=== PATIENT | male | born 1990 | race Caucasian/White ===

== ENCOUNTER 2020-03-21 12:55 | Outpatient (CLI) | payer BC, SELFPAY ==
[2020-03-21 13:38] LABS: Basophils Percent Auto 0.5 % (0.2-1.2); Eosinophils Absolute Auto 0.1 K/mm3 (0-0.3); Eosinophils Percent Auto 1.1 % (0-4.4); Hematocrit 42.5 % (42.0-52.0); Hemoglobin 14.6 g/dL (14.0-18.0); Immature Granulocyte Absolute 0.01 K/mm3 (0.00-0.031); Immature Granulocyte Percent A 0.2 % (0-0.5); Lymphocytes Absolute Auto 2.06 K/mm3 (0.9-3.2); Lymphocytes Percent Auto 33.2 % (18.3-44.2); Mean Corpuscular HGB Conc 34.4 g/dl (32-36); Mean Corpuscular Hemoglobin 32.7 pg (26-34); Mean Corpuscular Volume 95.3 fl (80-100); Monocytes Absolute Auto 0.6 K/mm3 (0.1-0.6); Monocytes Percent Auto 9.5 % (2.6-8.5); Neutrophils Absolute Auto 3.4 K/mm3 (1.3-6.7); Neutrophils Percent Auto 55.5 % (45.5-73.1); Platelet Count Result 231 k/mm3 (150-375); Red Blood Count 4.46 M/mm3 (4.6-6.20); Red Cell Distribution Width 12.2 % (11.5-14.5); White Blood Count 6.2 K/mm3 (4.5-10.0)
[2020-03-21 13:55] LABS: Alanine Aminotransferase 21 U/L (4-50); Albumin Level 4.7 g/dL (3.5-5.1); Alkaline Phosphatase 72 U/L (38-126); Aspartate Amino Transferase 26 U/L (17-59); Bilirubin,Total 0.3 mg/dL (0.2-1.3); Blood Urea Nitrogen 10 mg/dL (9-20); Calcium 9.1 mg/dL (8.4-10.2); Carbon Dioxide 29 mmol/L (22-30); Chloride 101 mmol/L (98-107); Estimated Glomerular Filt Rate > 60; Glucose 82 mg/dL (75-110); Potassium 3.9 mmol/L (3.4-5.0); Sodium 136 mmol/L (137-145)
[2020-03-23 17:11] LABS: Lamotrigine Lamictal 7.4 mcg/mL (4.0-18.0)
[2020-03-24 11:20] LABS: Oxcarbazepine 14.8 mcg/mL (8.0-35.0)
== END 2020-03-21 12:56 | disposition home or self-care (01) ==
PROVIDERS: PCP Family Medicine
DX: G40.219 Localization-related (focal) (partial) symptomatic epilepsy and epileptic syndromes with complex partial seizures, intractable, without status epilepticus (principal)
CPT/HCPCS: 36415; 80053; 80175; 80183; 85025

== ENCOUNTER 2020-11-15 06:19 | Emergency (ER) | payer OTHER, SELFPAY ==
--- NOTE | ~2020-11-15 | CT_ITS ---
EXAMINATION: CT brain wo con DATE: 11/15/2020 08:41 INDICATION: Altered mental status. TECHNIQUE: Computed tomography (CT) of the head was performed without intravenous contrast. The mA wa s adjusted according to patient size. Iterative reconstruction technique was employed. The dose-lengt h product was 605.33 mGy-cm. COMPARISON: None FINDINGS: There is no intracranial hemorrhage, acute infarction, or abnormal intracranial mass lesion . The ventricles are normal in size. The orbits are normal. There is mucosal thickening in the parana amie sinuses. The mastoid air cells are normal. There are right frontal lateral scalp skin raysa. IMPRESSION: 1. Normal brain. Reviewed, dictated and finalized at location A. ER OUT IMPRESSION: 1. Normal brain.
[2020-11-15] MEDS: LORazepam INJ (*CRX) 2 MG/ML VIAL (06:30)
--- NOTE | 2020-11-15 06:30 | ECG_ITS ---
Measurements Intervals [place] Rate: 110 P: 53 AR: 128 QRS: 57 QRSD: 97 T: 64 QT: 262 QTc: 355 Interpretive Statements SINUS TACHYCARDIA INCOMPLETE RIGHT BUNDLE BRANCH BLOCK NONSPECIFIC T-WAVE ABNORMALITY BASELINE ARTIFACT- II, III, AVL, AVF ABNORMAL ECG Electronically Signed On 11-15-2020 12:35:10 [facility] by Paco Espinal D.O.
--- NOTE | 2020-11-15 06:30 | PC.NURSE ---
Pt placed in hard leg restraints per EDP order. Pt left in PD handcuffs at this time as we unable to remove them safely. Pt is thrashing, threatening staff and spitting. Will remove them as soon as it is possible to do safely for patient and staff.
--- NOTE | 2020-11-15 06:30 | PC.NURSE ---
Administered Ativan 2mg R deltoid VORB ERP Michel
[2020-11-15 06:34] VITALS: BP 163/80; PULSE 145; RESP 26; TEMP 36.5
--- NOTE | 2020-11-15 06:40 | PC.NURSE ---
5mg haldol and 50mg benadryl given per verbal order by ANGEL [place].
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
[2020-11-15 07:17] LABS: Add Urine Microscopic? YES; Appearance Urine Clear (Clear); Bilirubin Urine Negative (Negative); Blood Urine Negative (Negative); Color Urine Yellow (Yellow); Glucose Urine UA Negative (Negative); Ketones Urine Negative (Negative); Leukocyte Esterase Ur Negative LEU/UL (Negative); Mucus Urine Heavy /lpf; Nitrate Urine Negative (Negative); Protein Urine 2+ mg/dL (Negative); RBC Urine 0-2 /hpf (0-2); Specific Grav Ur 1.027 (1.001-1.035); Squamous Epithelial Cell Urine Rare /hpf (Few); Urobilinogen Urine Negative mg/dL (<2.0)
[2020-11-15 07:27] LABS: Basophils Percent Auto 0.2 % (0.2-1.2); Eosinophils Percent Auto 0.2 % (0-4.4); Hematocrit 39.2 % (42.0-52.0); Hemoglobin 13.8 g/dL (14.0-18.0); Immature Granulocyte Absolute 0.05 K/mm3 (0.00-0.031); Immature Granulocyte Percent A 0.4 % (0-0.5); Lymphocytes Absolute Auto 1.84 K/mm3 (0.9-3.2); Lymphocytes Percent Auto 13.6 % (18.3-44.2); Mean Corpuscular HGB Conc 35.2 g/dl (32-36); Mean Corpuscular Hemoglobin 33.3 pg (26-34); Mean Corpuscular Volume 94.7 fl (80-100); Mean Platelet Volume 9.3 fl (7.4-10.4); Monocytes Absolute Auto 1.2 K/mm3 (0.1-0.6); Monocytes Percent Auto 8.7 % (2.6-8.5); Neutrophils Absolute Auto 10.4 K/mm3 (1.3-6.7); Neutrophils Percent Auto 76.9 % (45.5-73.1); Platelet Count Result 264 k/mm3 (150-375); Red Blood Count 4.14 M/mm3 (4.6-6.20); Red Cell Distribution Width 12.7 % (11.5-14.5); White Blood Count 13.5 K/mm3 (4.5-10.0)
[2020-11-15 07:29] LABS: Amphetamine Screen Urine Negative (Negative); Barbiturate Screen Urine Negative (Negative); Benzodiazepines Screen Urine Negative (Negative); Cannabinoid Screen Urine Positive (Negative); Cocaine Screen Urine Negative (Negative); Ethanol < 10 mg/dL (<10); Methadone Screen Urine Negative (Negative); Opiate Screen Urine Negative (Negative); Phencyclidine Screen Urine Negative (Negative); Salicylate < 1.0 mg/dL (2-20)
[2020-11-15 07:30] LABS: Albumin Level 4.3 g/dL (3.5-5.1); Alkaline Phosphatase 69 U/L (38-126); Anion Gap 13 mmol/L (8-16); Aspartate Amino Transferase 34 U/L (17-59); Bilirubin,Total 0.5 mg/dL (0.2-1.3); Blood Urea Nitrogen 12 mg/dL (9-20); Calcium 9.2 mg/dL (8.4-10.2); Carbon Dioxide 21 mmol/L (22-30); Chloride 108 mmol/L (98-107); Estimated CRCL calculation 83 ml/min; Estimated Glomerular Filt Rate > 60; Glucose 123 mg/dL (75-110); Sodium 142 mmol/L (137-145)
--- NOTE | 2020-11-15 07:30 | PC.NURSE ---
Pt thrashing in bed. Bed wheels were off floor. 4 employees in room trying to calm pt down. Verbal orders were given for [address] Pearson. Seizure pads applied to bed. Pt is talking about numbers and tv shows.
[2020-11-15] MEDS: LORazepam INJ (*CRX) 2 MG/ML VIAL IM (07:37)
[2020-11-15 07:38] LABS: Alanine Aminotransferase 18 U/L (4-50)
[2020-11-15 07:44] LABS: Acetaminophen < 10 ug/mL (10-30)
[2020-11-15 07:58] VITALS: BP 135/65; PULSE 88; RESP 26; O2SAT 100
--- NOTE | 2020-11-15 08:08 | PC.NURSE ---
Pt is resting in bed. Sitter is at bedside.
--- NOTE | 2020-11-15 08:17 | PC.NURSE ---
Offered pt a drink of water, pt declined. Pt is resting in bed with eyes closed. Sitter at door.
--- NOTE | 2020-11-15 08:21 | PC.NURSE ---
Left leg taken out of restraints. Informed pt that if he acts up we will have to put his leg back in restraints.
--- NOTE | 2020-11-15 08:51 | PC.NURSE ---
Pt taken CT scan pt was compliant. Restraints were removed once pt was back in room. Pt requested a fresco sandwich , informed pt that the best i can do would be a leonard, egg and cheese sandwich.
--- NOTE | 2020-11-15 09:55 | PC.NURSE ---
Pts tray at bedside. Pt states he is hungry but went back to sleep. Sitter at bedside.
--- NOTE | 2020-11-15 13:59 | PC.NURSE ---
Called pts father to come in get him. Left message for Alverto.
[2020-11-17 16:30] LABS: Lamotrigine Lamictal 9.8 mcg/mL (4.0-18.0)
== END 2020-11-15 13:48 | disposition home or self-care (01) ==
PROVIDERS: Emergency Medicine; Emergency Provider Emergency Medicine; PCP Psychiatry & Neurology Neurology
DX: G40.909 Epilepsy, unspecified, not intractable, without status epilepticus (principal); F12.90 Cannabis use, unspecified, uncomplicated; S01.81XA Laceration without foreign body of other part of head, initial encounter; Z87.820 Personal history of traumatic brain injury; W22.8XXA Striking against or struck by other objects, initial encounter
CPT/HCPCS: 12013; 36415; 51701; 70450; 80053; 80175; 80307; 81001; 84443; 85025; 93005; 96372; 99284; J1200; J1630; J2060